=== PATIENT | male | born 1950 | race Caucasian/White ===

== ENCOUNTER → 2017-09-02 | Outpatient (CLI) | payer MEDICARE ==
[~2017-09-02] VITALS: Ht 170.2 cm; Wt 76.9 kg
[~2017-09-02] MED LIST: ASPI-437 PO; CHLORHEXIDINE GLUCONATE 2 % 1 PACK (2 CLOTHS) TOPICAL PRN; DILT30TA PO; ERYTOIN10 LEFT EYE; EZET10 PO; FURO40TA PO; GABA300C5 PO; HYDR12.57 PO; INSULIN HUMAN REGULAR 1,000 UNITS/10 ML VIAL SQ PRN; KLOR20TA3 PO; LACTATED RINGER'S 1000 ML IV PRN; LOSA100T PO; METF1000 PO; METO100T PO; METOPROLOL TARTRATE 25 MG TAB PO PRN; POVIDONE IODINE 5% (ANTISEPSIS KIT) 4 APPLICATIONS EACH NARE PRN; PROPOFOL 200 MG/20 ML AMP IV ONE; ROSU40 PO; SODIUM CHLORID 0.9% 500 ML IV PRN; SYSTSOL EACH EYE; VANCOMYCIN 500 MG/NS 100 ML IV SCH; WARF-23 PO; [UNRECOGNIZED DRUG - CODE] TOPICAL
[2017-09-02 07:26] LABS: INTERNATIONAL NORMALIZED RATIO 1.3 RATIO; PROTHROMBIN TIME - PATIENT 12.9 SEC (9.8-11.6)
--- NOTE | 2017-09-02 08:00 | GIPROC ---
[facility] [address] [facility]. [facility], [address] COLONOSCOPY PROCEDURE REPORT EXAM DATE: 09/02/2017 PATIENT NAME: Johnny Freitas MR #: [id number] BIRTHDATE: 1950 ENDOSCOPIST: Leonor Tinajero MD ORDER #: [id number] BINDING CEMENTER FRENCH CORD: Alexy La and Jennifer Benoit STATUS: outpatient INDICATIONS: The patient is a 67 yr old male here for a colonoscopy due to screening, personal history of polyps. PROCEDURE PERFORMED: Total Colonoscopy MEDICATIONS: See Anesthesia Record ESTIMATED BLOOD LOSS: None CONSENT: The patient understands the risks and benefits of the procedure and understands that these risks include, but are not limited to: sedation, allergic reaction, infection, perforation and/or bleeding. Alternative means of evaluation and treatment include, among others: physical exam, x-rays, and/or surgical intervention. The patient elects to proceed with this endoscopic procedure. DESCRIPTION OF PROCEDURE: checked for proper function. Hand hygiene and appropriate measures for infection prevention was taken. After the risks, benefits and alternatives of the procedure were thoroughly explained, Informed consent was verified, confirmed and timeout was successfully executed by the treatment team. A digital exam was performed. The endoscope was introduced through the anus and advanced to the cecum, which was identified by the appendiceal orifice, tri-radiate valve, and ileocecal valve. The prep quality was excellent. The instrument was then slowly withdrawn as the colon was fully examined. With the exception of mild sigmoid diverticulosis, there were no mucosal abnormalities noted with the cecum, ascending colon, transverse colon, descending colon, sigmoid, or rectum. The scope was then completely withdrawn from the patient and the procedure terminated. ADVERSE EVENTS: There were no complications. WITHDRAWL TIME: DEGREE OF DIFFICULTY: IMPRESSIONS: Normal Colon RECOMMENDATIONS: Home today PATIENT CONDITION: Stable DISPOSITION: Home RECALL: 5 years Leonor Tinajero MD eSigned: Leonor Tinajero MD 09/02/2017 8:00 AM cc: Dr. Rick, Dr. March PATIENT NAME: Johnny Freitas MR#: [id number]
[2017-09-02 09:13] VITALS: BP 148/87; PULSE 79; RESP 16; TEMP 97.8; O2SAT 99
--- NOTE | 2017-09-02 10:06 | EKG ---
Date Performed: 09/02/2017 Time Performed: 06:50:14 PTAGE: 67 years EKG: ATRIAL FIBRILLATION NONSPECIFIC ST & T-WAVE ABNORMALITY ABNORMAL RHYTHM ECG PREVIOUS TRACING : 03/07/2015 07.11 Compared to the previous tracing rate slower DOCTOR: Benji Fischer Interpretating Date/Time 09/02/2017 10:05:03
== END ==
LOC: HSDC 06:05
PROVIDERS: ATTEND Colon & Rectal Surgery
DX: Z12.11 Encounter for screening for malignant neoplasm of colon (principal); Z86.010 Personal history of colon polyps; K57.30 Diverticulosis of large intestine without perforation or abscess without bleeding; I48.91 Unspecified atrial fibrillation; I10 Essential (primary) hypertension
CPT/HCPCS: 00810; 45378; 85610; 93005; J3370; J7120

== ENCOUNTER 2017-10-28 13:41 | Emergency (ER) | payer MEDICARE ==
[~2017-10-28] VITALS: Ht 170.2 cm; Wt 74.0 kg
[~2017-10-28 13:41] MED LIST changes: -CHLORHEXIDINE GLUCONATE 2 % 1 PACK (2 CLOTHS) TOPICAL PRN; -ERYTOIN10 LEFT EYE; -FURO40TA PO; -INSULIN HUMAN REGULAR 1,000 UNITS/10 ML VIAL SQ PRN; -KLOR20TA3 PO; -LACTATED RINGER'S 1000 ML IV PRN; -METOPROLOL TARTRATE 25 MG TAB PO PRN; -POVIDONE IODINE 5% (ANTISEPSIS KIT) 4 APPLICATIONS EACH NARE PRN; -PROPOFOL 200 MG/20 ML AMP IV ONE; -SODIUM CHLORID 0.9% 500 ML IV PRN; -SYSTSOL EACH EYE; -VANCOMYCIN 500 MG/NS 100 ML IV SCH
[2017-10-28] MEDS ORDERED: IOHEXOL 350 MG/ML 10 ML VIAL (for RAD DIAG) IVCONTRAST ONE (13:42)
[2017-10-28 13:43] VITALS: BP 139/94; PULSE 80; RESP 16; TEMP 98.4; O2SAT 99
[2017-10-28 15:03] LABS: AUTOMATED NEUTROPHIL # 4.1 TH/MM3 (1.8-7.7); BASOPHIL % 0.7 % (0.0-2.0); EOSINOPHIL # 0.4 TH/MM3 (0-0.4); EOSINOPHIL % 6.3 % (0.0-4.0); HEMATOCRIT 36.3 % (39.0-51.0); HEMOGLOBIN 12.5 GM/DL (13.0-17.0); LYMPH % 24.6 % (9.0-44.0); LYMPHOCYTE # 1.7 TH/MM3 (1.0-4.8); MEAN CELL VOLUME 87.7 FL (80.0-100.0); MEAN CORPUSCULAR HEMOGLOBIN 30.2 PG (27.0-34.0); MEAN CORPUSCULAR HGB CONC 34.4 % (32.0-36.0); MONO % 9.6 % (0.0-8.0); MONOCYTE # 0.7 TH/MM3 (0-0.9); NEUT % 58.8 % (16.0-70.0); PLATELET COUNT 249 TH/MM3 (150-450); RED BLOOD COUNT 4.14 MIL/MM3 (4.50-5.90)
[2017-10-28 15:24] LABS: ALT (GPT) 22 U/L (12-78); AST (GOT) 23 U/L (15-37); BICARBONATE 28.2 MEQ/L (21.0-32.0); BLOOD UREA NITROGEN 20 MG/DL (7-18); CALCIUM 8.3 MG/DL (8.5-10.1); CHLORIDE 104 MEQ/L (98-107); CREATININE 0.94 MG/DL (0.60-1.30); GLOMERULAR FILTRATION RATE 80 ML/MIN (>89); GLUCOSE,RANDOM 85 MG/DL (74-106); LIPASE 496 U/L (73-393); SODIUM (NA) 137 MEQ/L (136-145)
[2017-10-28 15:26] LABS: ALKALINE PHOSPHATASE 78 U/L (45-117); TOTAL BILIRUBIN ADULT 0.5 MG/DL (0.2-1.0); TOTAL PROTEIN 7.8 GM/DL (6.4-8.2)
[2017-10-28 15:34] LABS: INTERNATIONAL NORMALIZED RATIO 1.8 RATIO; PROTHROMBIN TIME - PATIENT 18.4 SEC (9.8-11.6)
--- NOTE | 2017-10-28 16:11 | PD ---
HPI Chief Complaint: GI Complaint Time Seen by Provider: 15:45 Travel History International Travel<30 days: No Contact w/Intl Traveler<30days: No Traveled to known affect area: No History of Present Illness HPI 67-year-old male complains of bloody stool. Patient states that he started having diarrhea about 4 weeks ago. Patient states that the diarrhea lasted for 3 weeks. Patient was seen by personal physician and given prescription for Flagyl. Patient states that the diarrhea resolved and came back again since last week. Patient states that he has intermittent black tarry stool yesterday and bloody stool today. Patient denies abdominal pain. Patient denies any headache. Patient denies any chest pain or shortness of breath. Patient denies any fever chills. Patient denies any back pain. Patient has history of atrial fibrillation and bovine aortic valve replacement. Patient is on Coumadin. Patient ALSO has history of diabetes, hypertension, CAD, CHF, TIA. Patient check his INR this morning and it was 2.0. PFSH Past Medical History Arthritis: No Asthma: Yes Atrial Fibrillation: Yes (STATES SINCE ) Autoimmune Disease: No Anxiety: No Depression: No Heart Rhythm Problems: Yes (AFIB) Cardiac Catheterization: Yes Cardiovascular Problems: Yes (CARDIAC CATH ,ANGIOGRAM, cardiac ablation, MV REPAIR, AVR) High Cholesterol: Yes (ON MEDICATION) Chest Pain: Yes Congestive Heart Failure: No COPD: Yes Coronary Artery Disease: Yes Diabetes: Yes Patient Takes Glucophage: No Endocrine: No GERD: No Genitourinary: No Hepatitis: No Hiatal Hernia: No Hypertension: Yes (ON MEDICATION) Immune Disorder: No Kidney Stones: Yes Musculoskeletal: Yes (LARGE FATTY TUMOR REMOVED RIGHT LEG [id number]) Neurologic: No Psychiatric: No Reproductive: No Respiratory: Yes (PARTIAL RIGHT lobectomy 1999) Renal Failure: Yes Sleep Apnea: No Thyroid Disease: No Ulcer: Yes Past Surgical History Abdominal Surgery: No AICD: No Body Medical Devices: aortic valve replacement, SOLO FROM LUNG SX, STERNAL WIRES Cardiac Surgery: Yes (2 CARDIAC CATHS 1998 AND 2000) Coronary Artery Bypass Graft: Yes Ear Surgery: No Endocrine Surgery: No Eye Surgery: No Genitourinary Surgery: Yes (TURP X 2) Gynecologic Surgery: No Joint Replacement: No Oral Surgery: No Pacemaker: No Thoracic Surgery: Yes (LOBECTOMY ON RIGHT LUNG IN 1999) Valve Replacement: Yes Other Surgery: Yes Social History Alcohol Use: No Tobacco Use: No (FORMER 1984) Substance Use: No Allergies-Medications (Allergen,Severity, Reaction): Coded Allergies: sulfamethoxazole (Unverified Allergy, Severe, Headache, 10/28/17) trimethoprim (Unverified Allergy, Severe, Headache, 10/28/17) Sulfa (Sulfonamide Antibiotics) (Unverified Allergy, Intermediate, 10/28/17 ) Reported Meds & Prescriptions Reported Meds & Active Scripts Active Reported Gabapentin 300 Mg Cap 900 Mg PO BID Zetia (Ezetimibe) 10 Mg Tab 10 Mg PO DAILY Crestor (Rosuvastatin Calcium) 40 Mg Tab 40 Mg PO DAILY Diltiazem (Diltiazem HCl) 30 Mg Tab 30 Mg PO BID Metformin (Metformin HCl) 1,000 Mg Tab 1,000 Mg PO BIDPC With meals Hydrochlorothiazide 12.5 Mg Cap 12.5 Mg PO DAILY Metoprolol Tartrate 100 Mg Tab 2 Tab PO BID Losartan (Losartan Potassium) 100 Mg Tab 100 Mg PO DAILY Adult Low Dose Aspirin EC (Aspirin) 81 Mg Tablet.dr 1 Tab PO DAILY Warfarin 5 Mg Tab 5 Mg PO DAILY Review of Systems General / Constitutional: No: Fever Eyes: No: Visual changes HENT: No: Headaches Cardiovascular: No: Chest Pain or Discomfort Respiratory: No: Shortness of Breath Gastrointestinal: Positive: Hematochezia, No: Abdominal Pain Genitourinary: No: Dysuria Musculoskeletal: No: Pain Skin: No Rash Neurologic: No: Weakness Psychiatric: No: Depression Endocrine: No: Polydipsia Hematologic/Lymphatic: No: Easy Bruising Physical Exam Narrative GENERAL: Well-nourished, well-developed patient. SKIN: Focused skin assessment warm/dry. HEAD: Normocephalic. EYES: No scleral icterus. No injection or drainage. NECK: Supple, trachea midline. No JVD or lymphadenopathy. CARDIOVASCULAR: Regular rate and rhythm without murmurs, gallops, or rubs. RESPIRATORY: Breath sounds equal bilaterally. No accessory muscle use. GASTROINTESTINAL: Abdomen soft, non-tender, nondistended. Rectal exam Hemoccult trace positive. MUSCULOSKELETAL: No cyanosis, or edema. BACK: Nontender without obvious deformity. No CVA tenderness. Neurologic exam normal. Data Data Last Documented VS Vital Signs Date Time Temp Pulse Resp B/P (MAP) Pulse Ox O2 Delivery O2 Flow Rate FiO2 10/28/17 13:43 98.4 80 16 139/94 (109) 99 Orders Orders Complete Blood Count With Diff (10/28/17 13:45) Comprehensive Metabolic Panel (10/28/17 13:45) Lipase (10/28/17 13:45) Prothrombin Time / Inr (Pt) (10/28/17 13:45) Act Partial Throm Time (Ptt) (10/28/17 13:45) Ct Abd/Pel W Iv Contrast(Rout) (10/28/17 15:59) Iohexol 350 Inj (Omnipaque 350 Inj) (10/28/17 13:42) Ed Discharge Order (10/28/17 18:58) Labs Laboratory Tests Test 10/28/17 13:55 White Blood Count 7.0 TH/MM3 Red Blood Count 4.14 MIL/MM3 Hemoglobin 12.5 GM/DL Hematocrit 36.3 % Mean Corpuscular Volume 87.7 FL Mean Corpuscular Hemoglobin 30.2 PG Mean Corpuscular Hemoglobin Concent 34.4 % Red Cell Distribution Width 14.0 % Platelet Count 249 TH/MM3 Mean Platelet Volume 8.0 FL Neutrophils (%) (Auto) 58.8 % Lymphocytes (%) (Auto) 24.6 % Monocytes (%) (Auto) 9.6 % Eosinophils (%) (Auto) 6.3 % Basophils (%) (Auto) 0.7 % Neutrophils # (Auto) 4.1 TH/MM3 Lymphocytes # (Auto) 1.7 TH/MM3 Monocytes # (Auto) 0.7 TH/MM3 Eosinophils # (Auto) 0.4 TH/MM3 Basophils # (Auto) 0.0 TH/MM3 CBC Comment DIFF FINAL Differential Comment Prothrombin Time 18.4 SEC Prothromb Time International Ratio 1.8 RATIO Activated Partial Thromboplast Time 33.8 SEC Blood Urea Nitrogen 20 MG/DL Creatinine 0.94 MG/DL Random Glucose 85 MG/DL Total Protein 7.8 GM/DL Albumin 4.0 GM/DL Calcium Level 8.3 MG/DL Alkaline Phosphatase 78 U/L Aspartate Amino Transf (AST/SGOT) 23 U/L Alanine Aminotransferase (ALT/SGPT) 22 U/L Total Bilirubin 0.5 MG/DL Sodium Level 137 MEQ/L Potassium Level 4.3 MEQ/L Chloride Level 104 MEQ/L Carbon Dioxide Level 28.2 MEQ/L Anion Gap 5 MEQ/L Estimat Glomerular Filtration Rate 80 ML/MIN Lipase 496 U/L [facility] Medical Decision Making Medical Screen Exam Complete: Yes Emergency Medical Condition: Yes Interpretation(s) [address] scan abdomen pelvis shows gastroenteritis. CBC WBC 7.0. Hemoglobin 12.5 hematocrit 36.3. Normal differential. BUN 20. GFR 80. Lipase 496. INR 1.8. Differential Diagnosis Differential diagnosis including upper GI bleed, lower GI bleed, colitis, hemorrhoidal bleed, AV malformation, hypercoagulation. Narrative Course 67-year-old male with blood per stool. History of atrial fibrillation and bovine aortic valve replacement on Coumadin. Recently was treated for C. difficile colitis with Flagyl. I spoke with Dr. Leonor Tinajero. Advised patient to follow up with her in the office. Diagnosis Primary Impression: Gastroenteritis Additional Impression: GI bleed Qualified Codes: K92.2 - Gastrointestinal hemorrhage, unspecified Patient Instructions: General Instructions Additional Instructions: Follow-up with personal physician. Return if increasing rectal bleeding or abdominal pain or fever. Med/Other Pt SpecificInfo: No Change to Meds Disposition: 01 DISCHARGE HOME Condition: Stable Jose Carlos French MD Oct 28, 2017 16:11
--- NOTE | 2017-10-28 17:46 | RADRPT ---
EXAM DATE/TIME: 10/28/2017 17:33 [facility] COMPARISON: CT ABDOMEN & PELVIS W/O CONTRAST, March 06, 2015, 13:07. INDICATIONS : Patient complains of bloody stools. IV CONTRAST: 94 cc Omnipaque 350 (iohexol) IV ORAL CONTRAST: No oral contrast ingested. RADIATION DOSE: 8.08 CTDIvol (mGy) MEDICAL HISTORY : Cardiovascular disease. Hypertension. Chronic obstructive pulmonary disease.renal failure SURGICAL HISTORY : Lobectomy. ENCOUNTER: Initial ACUITY: 1 day PAIN SCALE: 0/10 LOCATION: abdomen TECHNIQUE: Volumetric scanning of the abdomen and pelvis was performed. Using automated exposure control and ad justment of the mA and/or kV according to patient size, radiation dose was kept as low as reasonably achievable to obtain optimal diagnostic quality images. DICOM format image data is available electro nically for review and comparison. FINDINGS: LOWER LUNGS: The visualized lower lungs are clear except for mild scarring and emphysema. The patient is status po st median sternotomy. There is a mitral valve prosthesis in place. LIVER: Homogeneous density without lesion. There is no dilation of the biliary tree. No calcified gallston es. SPLEEN: Normal size without lesion. PANCREAS: Within normal limits. KIDNEYS: Normal in size and shape. There is no solid mass, stone or hydronephrosis. A simple cyst is again no arash in the left kidney. ADRENAL GLANDS: Within normal limits. VASCULAR: There is no aortic aneurysm. BOWEL/MESENTERY: No oral contrast was given limiting the sensitivity. There are multiple loops of nondilated air-conta ining small bowel several small air-fluid levels. Colon appears unremarkable. There is no free intrap eritoneal air or fluid. ABDOMINAL WALL: Within normal limits. RETROPERITONEUM: There is no lymphadenopathy. BLADDER: No wall thickening or mass. REPRODUCTIVE: Within normal limits. INGUINAL: There is no lymphadenopathy or hernia. MUSCULOSKELETAL: Within normal limits for patient age. CONCLUSION: 1. Mildly nonspecific, nonobstructive bowel gas pattern. This could represent a mild ileus and/or gas troenteritis. No oral contrast was given limiting the sensitivity of the exam. 2. Simple left renal cyst again noted. Marky Royal MD on October 28, 2017 at 17:40 Board Certified Radiologist. This report was verified electronically.
== END 2017-10-28 19:17 | disposition home or self-care (01) ==
LOC: NEPC 13:41
DX: K52.9 Noninfective gastroenteritis and colitis, unspecified (principal); I48.91 Unspecified atrial fibrillation; E78.00 Pure hypercholesterolemia, unspecified; I25.10 Atherosclerotic heart disease of native coronary artery without angina pectoris; I12.9 Hypertensive chronic kidney disease with stage 1 through stage 4 chronic kidney disease, or unspecified chronic kidney disease; E11.22 Type 2 diabetes mellitus with diabetic chronic kidney disease; N18.9 Chronic kidney disease, unspecified; Z79.01 Long term (current) use of anticoagulants; Z79.84 Long term (current) use of oral hypoglycemic drugs; Z95.3 Presence of xenogenic heart valve; Z87.891 Personal history of nicotine dependence
CPT/HCPCS: 74177; 80053; 83690; 85025; 85610; 85730; 99285; Q9967

== ENCOUNTER 2017-12-30 09:25 | Emergency (ER) | payer MEDICARE ==
[~2017-12-30] VITALS: Ht 170.2 cm; Wt 75.0 kg
[~2017-12-30 09:25] MED LIST changes: -[UNRECOGNIZED DRUG - CODE] TOPICAL
[2017-12-30 09:30] VITALS: RESP 20; TEMP 98.7
[2017-12-30 09:34] VITALS: BP 165/99; PULSE 109; RESP 18; TEMP 98.7; O2SAT 98
[2017-12-30] MEDS ORDERED: POTA-163 PO (09:39)
[2017-12-30] MEDS ORDERED: NITR0.4S SL (09:39)
--- NOTE | 2017-12-30 09:41 | PD ---
HPI Chief Complaint: Pain: Acute or Chronic Time Seen by Provider: 09:32 Travel History International Travel<30 days: No Contact w/Intl Traveler<30days: No Traveled to known affect area: No History of Present Illness HPI Patient complains of right hip pain. Duration is 3 days. Severity is moderate. He has not had any injury or fall recently. He takes Coumadin for history of A. fib. He has been on this for 6 years. He has spontaneous bruising of the left arm and chest wall. He denies injury in these areas. He has been ambulatory and has pain with weightbearing. Symptoms have no alleviating factors. Symptoms exacerbated by Coumadin use. Patient had recent endoscopy and colonoscopy for GI bleeding. His last bleeding was 1 month ago. He has not had a recent INR check PFS Past Medical History Arthritis: No Asthma: Yes Atrial Fibrillation: Yes (STATES SINCE ) Autoimmune Disease: No Anxiety: No Depression: No Heart Rhythm Problems: Yes (AFIB) Cardiac Catheterization: Yes Cardiovascular Problems: Yes (CARDIAC CATH ,ANGIOGRAM, cardiac ablation, MV REPAIR, AVR) High Cholesterol: Yes (ON MEDICATION) Chest Pain: Yes Congestive Heart Failure: No COPD: Yes Coronary Artery Disease: Yes Diabetes: Yes Patient Takes Glucophage: Yes (METFORMIN) Endocrine: No GERD: No Genitourinary: No Hepatitis: No Hiatal Hernia: No Hypertension: Yes Immune Disorder: No Kidney Stones: Yes Musculoskeletal: Yes (LARGE FATTY TUMOR REMOVED RIGHT LEG [id number]) Neurologic: No Psychiatric: No Reproductive: No Respiratory: Yes (PARTIAL RIGHT lobectomy 1999) Renal Failure: Yes Sleep Apnea: No Thyroid Disease: No Ulcer: Yes Past Surgical History Abdominal Surgery: No AICD: No Body Medical Devices: aortic valve replacement, SOLO FROM LUNG SX, STERNAL WIRES Cardiac Surgery: Yes (2 CARDIAC CATHS 1998 AND 2000) Coronary Artery Bypass Graft: Yes Ear Surgery: No Endocrine Surgery: No Eye Surgery: No Genitourinary Surgery: Yes (TURP X 2) Gynecologic Surgery: No Joint Replacement: No Oral Surgery: No Pacemaker: No Thoracic Surgery: Yes (LOBECTOMY ON RIGHT LUNG IN 1999) Valve Replacement: Yes Other Surgery: Yes Social History Alcohol Use: No Tobacco Use: No (FORMER 1984) Substance Use: No Allergies-Medications (Allergen,Severity, Reaction): Coded Allergies: sulfamethoxazole (Unverified Allergy, Severe, Headache, 12/30/17) trimethoprim (Unverified Allergy, Severe, Headache, 12/30/17) Sulfa (Sulfonamide Antibiotics) (Unverified Allergy, Intermediate, 12/30/17) Reported Meds & Prescriptions Reported Meds & Active Scripts Active Reported Potassium Chloride ER (Potassium Chloride) 20 Meq Tab 20 Meq PO DAILY Nitrostat SL (Nitroglycerin) 0.4 Mg Subl 0.4 Mg SL DIRECTED PRN 1 tablet under the tongue as needed for chest pain. Repeat every 5 minutes for a total of 3 DOSES or call 911 if NO relief. Gabapentin 300 Mg Cap 900 Mg PO BID Zetia (Ezetimibe) 10 Mg Tab 10 Mg PO DAILY Crestor (Rosuvastatin Calcium) 40 Mg Tab 40 Mg PO DAILY Diltiazem (Diltiazem HCl) 30 Mg Tab 60 Mg PO BID Metformin (Metformin HCl) 1,000 Mg Tab 1,000 Mg PO BIDPC With meals Hydrochlorothiazide 12.5 Mg Cap 12.5 Mg PO DAILY Metoprolol Tartrate 100 Mg Tab 2 Tab PO BID Losartan (Losartan Potassium) 100 Mg Tab 100 Mg PO DAILY Adult Low Dose Aspirin EC (Aspirin) 81 Mg Tablet.dr 1 Tab PO DAILY Warfarin 5 Mg Tab 5 Mg PO DAILY Review of Systems General / Constitutional: No: Fever Eyes: No: Visual changes HENT: No: Headaches Cardiovascular: Positive: Irregular Rhythm, No: Chest Pain or Discomfort Respiratory: No: Shortness of Breath Gastrointestinal: No: Abdominal Pain Genitourinary: No: Dysuria Musculoskeletal: Positive: Pain Skin: Positive Change in Pigmentation, No Rash Neurologic: No: Weakness Psychiatric: No: Depression Endocrine: No: Polydipsia Hematologic/Lymphatic: No: Easy Bruising Physical Exam Narrative GENERAL: Well-nourished, well-developed patient with right hip pain . SKIN: Focused skin assessment reveals no rash and nodules. Skin is Warm and dry. HEAD: Atraumatic. Normocephalic. EYES: Pupils equal and round. No scleral icterus. No injection or drainage. ENT: No nasal bleeding or discharge. Mucous membranes pink and moist. NECK: Trachea midline. No JVD. CARDIOVASCULAR: Irregularly irregular rhythm. 2 to 3 out of 6 systolic murmur appreciated. RESPIRATORY: No accessory muscle use. Clear to auscultation. Breath sounds equal bilaterally. GASTROINTESTINAL: Abdomen soft, non-tender, nondistended. Hepatic and splenic margins not palpable. MUSCULOSKELETAL: No obvious deformities. No clubbing. No cyanosis. No edema. Has areas of ecchymosis on the left chest wall and left upper arm. No bony tenderness in these regions. Decent range of motion right hip. He has pain in the right quadricep which is tender. No ecchymosis in that region. NEUROLOGICAL: Awake and alert. No obvious cranial nerve deficits. Motor grossly within normal limits. Normal speech. PSYCHIATRIC: Appropriate mood and affect; insight and judgment normal. Data Data Last Documented VS Vital Signs Date Time Temp Pulse Resp B/P (MAP) Pulse Ox O2 Delivery O2 Flow Rate FiO2 12/30/17 09:34 98.7 109 18 165/99 (121) 98 Room Air Orders Orders Pelvis, Ap Only (Routine) (12/30/17 ) Femur (Ap & Lat/2vws) (12/30/17 ) Iv Access Insert/Monitor (12/30/17 09:45) Complete Blood Count With Diff (12/30/17 09:45) Basic Metabolic Panel (Bmp) (12/30/17 09:45) Prothrombin Time / Inr (Pt) (12/30/17 09:45) Labs Laboratory Tests Test 12/30/17 09:45 White Blood Count 9.0 TH/MM3 Red Blood Count 3.47 MIL/MM3 Hemoglobin 10.3 GM/DL Hematocrit 30.3 % Mean Corpuscular Volume 87.1 FL Mean Corpuscular Hemoglobin 29.8 PG Mean Corpuscular Hemoglobin Concent 34.2 % Red Cell Distribution Width 13.8 % Platelet Count 255 TH/MM3 Mean Platelet Volume 8.2 FL Neutrophils (%) (Auto) 75.8 % Lymphocytes (%) (Auto) 12.3 % Monocytes (%) (Auto) 10.6 % Eosinophils (%) (Auto) 1.1 % Basophils (%) (Auto) 0.2 % Neutrophils # (Auto) 6.8 TH/MM3 Lymphocytes # (Auto) 1.1 TH/MM3 Monocytes # (Auto) 1.0 TH/MM3 Eosinophils # (Auto) 0.1 TH/MM3 Basophils # (Auto) 0.0 TH/MM3 CBC Comment DIFF FINAL Differential Comment Prothrombin Time 48.4 SEC Prothromb Time International Ratio 4.8 RATIO Blood Urea Nitrogen 16 MG/DL Creatinine 0.98 MG/DL Random Glucose 139 MG/DL Calcium Level 8.1 MG/DL Sodium Level 138 MEQ/L Potassium Level 3.8 MEQ/L Chloride Level 104 MEQ/L Carbon Dioxide Level 27.1 MEQ/L Anion Gap 7 MEQ/L Estimat Glomerular Filtration Rate 76 ML/MIN MDM Medical Decision Making Medical Screen Exam Complete: Yes Emergency Medical Condition: Yes Medical Record Reviewed: Yes Differential Diagnosis Supratherapeutic INR, arthritis, A. fib with RVR Narrative Course I have reviewed the patient's electronic medical record. IV placed and labs sent Reviewed his pelvis x-ray which shows no fracture I reviewed his right femur x-rays which shows no fracture or dislocation Labs are reviewed. His INR is elevated at 4.8 We had a lengthy discussion regarding this. We discussed options to reverse his Coumadin but given that he has artificial valve and is supposed to be between 2.5 and 3.5 we have decided to let this drift down naturally. I do not see any obvious hematoma or bruising in the right quadricep where he has his pain. He will not take his Coumadin today or tomorrow. He should get a repeat check in a couple of days He is advised to discuss this with his personal physician Gave him an injection of morphine for symptom relief Incidental note is made of his A. fib with RVR. Heart rate is running between 100-1 25 Going to give him 10 mg IV Cardizem He has elevated blood pressure of 165 systolic prior to the dose He is advised to check and record his blood pressure daily I do not think on a clinical basis he has significant hemarthrosis Seems to be quadricep muscular pain that is bothering him He does have a walker at home I recommended he use I will write him a few days of pain medication Diagnosis Primary Impression: Acute right hip pain Additional Impressions: Supratherapeutic INR Spontaneous ecchymosis Additional Instructions: The patient was advised to follow up with their physician and return if they worsen. The patient was warned about potential sedation for the medications they will receive on prescription. Use walker Hold Coumadin today and tomorrow Med/Other Pt SpecificInfo: Prescription(s) given Disposition: 01 DISCHARGE HOME Condition: Stable Ryley Torres MD Dec 30, 2017 09:41
[2017-12-30 10:10] LABS: AUTOMATED NEUTROPHIL # 6.8 TH/MM3 (1.8-7.7); BASOPHIL % 0.2 % (0.0-2.0); EOSINOPHIL # 0.1 TH/MM3 (0-0.4); EOSINOPHIL % 1.1 % (0.0-4.0); HEMATOCRIT 30.3 % (39.0-51.0); HEMOGLOBIN 10.3 GM/DL (13.0-17.0); LYMPH % 12.3 % (9.0-44.0); LYMPHOCYTE # 1.1 TH/MM3 (1.0-4.8); MEAN CELL VOLUME 87.1 FL (80.0-100.0); MEAN CORPUSCULAR HEMOGLOBIN 29.8 PG (27.0-34.0); MEAN CORPUSCULAR HGB CONC 34.2 % (32.0-36.0); MEAN PLATELET VOLUME 8.2 FL (7.0-11.0); MONO % 10.6 % (0.0-8.0); NEUT % 75.8 % (16.0-70.0); PLATELET COUNT 255 TH/MM3 (150-450); RED BLOOD COUNT 3.47 MIL/MM3 (4.50-5.90); RED CELL DISTRIBUTION WIDTH 13.8 % (11.6-17.2)
[2017-12-30 10:17] LABS: INTERNATIONAL NORMALIZED RATIO 4.8 RATIO; PROTHROMBIN TIME - PATIENT 48.4 SEC (9.8-11.6)
[2017-12-30 10:32] LABS: BICARBONATE 27.1 MEQ/L (21.0-32.0); CALCIUM 8.1 MG/DL (8.5-10.1); CREATININE 0.98 MG/DL (0.60-1.30)
--- NOTE | 2017-12-30 10:33 | RADRPT ---
EXAM DATE/TIME: 12/30/2017 10:06 [facility] COMPARISON: No previous studies available for comparison. INDICATIONS : No known injury. Pain in right hip starting yesterday. MEDICAL HISTORY : Cardiovascular disease. Hypertension. Chronic obstructive pulmonary disease.renal failure SURGICAL HISTORY : Lobectomy. ENCOUNTER: Initial ACUITY: 1 day PAIN SCORE: 7/10 LOCATION: Right Hip FINDINGS: Mild patient rotation towards the left previous left/right asymmetries. A single frontal view of the pelvis demonstrates no evidence of fracture. The bony pelvic ring is intact. Bony mineralization i s normal. Symmetric mild degenerative changes in both hips. Vascular calcification in the proximal thighs and iliac region.. CONCLUSION: Bony pelvic ring is grossly intact. Goyo Cifuentes MD on December 30, 2017 at 10:28 Board Certified Radiologist. This report was verified electronically.
--- NOTE | 2017-12-30 10:34 | RADRPT ---
EXAM DATE/TIME: 12/30/2017 10:07 [facility] COMPARISON: No previous studies available for comparison. INDICATIONS : No known injury. Pain in right hip starting yesterday. MEDICAL HISTORY : Cardiovascular disease. Hypertension. Chronic obstructive pulmonary disease.renal failure SURGICAL HISTORY : Lobectomy. ENCOUNTER: Initial ACUITY: 1 day PAIN SCORE: 7/10 LOCATION: Right Hip FINDINGS: Two view examination of the right femur demonstrates no evidence of fracture or dislocation. Bony mi neralization is normal. The primary and secondary trabecular pattern of the femoral neck is intact. Mild narrowing of the superior hip joint without significant osteophyte formation. Prominent vascu lar calcification throughout the spine.. CONCLUSION: Mild degenerative changes in the hip. Otherwise negative exam. Goyo Cifuentes MD on December 30, 2017 at 10:30 Board Certified Radiologist. This report was verified electronically.
[2017-12-30] MEDS ORDERED: MORPHINE SULFATE 4 MG/ML INJ IV PUSH ONE (11:00)
[2017-12-30] MEDS ORDERED: ONDANSETRON HCL 4 MG/2 ML VIAL IV ONE (11:00)
[2017-12-30] MEDS ORDERED: DILTIAZEM HCL 25 MG/5 ML VIAL IV ONE (11:00)
[2017-12-30] MEDS ORDERED: DILTIAZEM HCL 50 MG/10 ML VIAL ONE (11:21)
[2017-12-30] MEDS ORDERED: PERC5TAB12 PO (11:26)
[2017-12-30 11:28] VITALS: BP 140/89; PULSE 94; RESP 22; O2SAT 95
[2017-12-30 12:25] VITALS: BP 162/83
== END 2017-12-30 12:29 | disposition home or self-care (01) ==
LOC: NEPC 09:25
DX: M25.551 Pain in right hip (principal); R79.1 Abnormal coagulation profile; R23.3 Spontaneous ecchymoses; E78.00 Pure hypercholesterolemia, unspecified; I48.91 Unspecified atrial fibrillation; I25.10 Atherosclerotic heart disease of native coronary artery without angina pectoris; I12.9 Hypertensive chronic kidney disease with stage 1 through stage 4 chronic kidney disease, or unspecified chronic kidney disease; E11.22 Type 2 diabetes mellitus with diabetic chronic kidney disease; N18.9 Chronic kidney disease, unspecified; Z87.891 Personal history of nicotine dependence; Z79.01 Long term (current) use of anticoagulants; Z79.84 Long term (current) use of oral hypoglycemic drugs
CPT/HCPCS: 72170; 73552; 80048; 85025; 85610; 96374; 96375; 99284; J2270; J2405

== ENCOUNTER 2018-01-02 11:38 | Emergency (ER) | payer MEDICARE ==
[~2018-01-02] VITALS: Ht 170.2 cm; Wt 72.5 kg
[~2018-01-02 11:38] MED LIST changes: +NITR0.4S SL; +PERC5TAB12 PO; +POTA-163 PO
[2018-01-02 11:51] VITALS: BP 144/67; PULSE 61; RESP 18; TEMP 98.5; O2SAT 97
[2018-01-02] MEDS ORDERED: SODIUM CHLORIDE 0.9% FLUSH 10 ML FLUSH IV FLUSH PRN (15:15)
--- NOTE | 2018-01-02 15:16 | PD ---
HPI Chief Complaint: Hip Injury Time Seen by Provider: 14:34 Travel History International Travel<30 days: No Contact w/Intl Traveler<30days: No Traveled to known affect area: No History of Present Illness HPI This patient was seen here 3 days ago. I saw him and he had spontaneous pain in the right hip and right quadricep area with no injury. Etiology was puzzling. Plain films were negative. He returns today with pain that is now in his right lower quadrant primarily. He is not having pain in the right quadricep which was the main problem a few days ago. He admits the pain is migratory. He has no fever or vomiting. Symptoms are moderately severe. Pain seems worse when he is walking. No alleviating factors. Duration 5 days. He is holding his Coumadin as his INR was elevated. PFSH Past Medical History Hx Anticoagulant Therapy: Yes (coumadin) Arthritis: No Asthma: Yes Atrial Fibrillation: Yes (STATES SINCE ) Autoimmune Disease: No Anxiety: No Depression: No Heart Rhythm Problems: Yes (AFIB) Cardiac Catheterization: Yes Cardiovascular Problems: Yes High Cholesterol: Yes (ON MEDICATION) Chemotherapy: No Chest Pain: Yes Congestive Heart Failure: No COPD: Yes Cerebrovascular Accident: No Coronary Artery Disease: Yes Diabetes: Yes Patient Takes Glucophage: Yes Endocrine: No GERD: No Genitourinary: No Hepatitis: No Hiatal Hernia: No Hypertension: Yes Immune Disorder: No Kidney Stones: Yes Musculoskeletal: Yes (LARGE FATTY TUMOR REMOVED RIGHT LEG [id number]) Neurologic: No Psychiatric: No Reproductive: No Respiratory: No Renal Failure: Yes Sleep Apnea: No Thyroid Disease: No Ulcer: Yes Past Surgical History Abdominal Surgery: No AICD: No Body Medical Devices: aortic valve replacement, SOLO FROM LUNG SX, STERNAL WIRES Cardiac Surgery: Yes (2 CARDIAC CATHS 99 & 01, ARTIFICIAL VALVE (BOVINE AORTIC) , MITRALVALVEREPAI) Coronary Artery Bypass Graft: Yes Ear Surgery: No Endocrine Surgery: No Eye Surgery: No Genitourinary Surgery: Yes (TURP X 2) Gynecologic Surgery: No Joint Replacement: No Oral Surgery: No Pacemaker: No Thoracic Surgery: Yes (LOBECTOMY ON RIGHT LUNG IN 1999) Valve Replacement: Yes Other Surgery: Yes Social History Alcohol Use: No Tobacco Use: No (FORMER 1984) Substance Use: No Allergies-Medications (Allergen,Severity, Reaction): Coded Allergies: sulfamethoxazole (Unverified Allergy, Severe, Headache, 12/30/17) trimethoprim (Unverified Allergy, Severe, Headache, 12/30/17) Sulfa (Sulfonamide Antibiotics) (Unverified Allergy, Intermediate, 12/30/17) Reported Meds & Prescriptions Reported Meds & Active Scripts Active Percocet (Oxycodone-Acetaminophen) 5-325 mg Tab 1 Tab PO Q6H PRN Reported Potassium Chloride ER (Potassium Chloride) 20 Meq Tab 20 Meq PO DAILY Nitrostat SL (Nitroglycerin) 0.4 Mg Subl 0.4 Mg SL DIRECTED PRN 1 tablet under the tongue as needed for chest pain. Repeat every 5 minutes for a total of 3 DOSES or call 911 if NO relief. Gabapentin 300 Mg Cap 900 Mg PO BID Zetia (Ezetimibe) 10 Mg Tab 10 Mg PO DAILY Crestor (Rosuvastatin Calcium) 40 Mg Tab 40 Mg PO DAILY Diltiazem (Diltiazem HCl) 30 Mg Tab 60 Mg PO BID Metformin (Metformin HCl) 1,000 Mg Tab 1,000 Mg PO BIDPC With meals Hydrochlorothiazide 12.5 Mg Cap 12.5 Mg PO DAILY Metoprolol Tartrate 100 Mg Tab 2 Tab PO BID Losartan (Losartan Potassium) 100 Mg Tab 100 Mg PO DAILY Adult Low Dose Aspirin EC (Aspirin) 81 Mg Tablet.dr 1 Tab PO DAILY Warfarin 5 Mg Tab 5 Mg PO DAILY Review of Systems General / Constitutional: No: Fever Eyes: No: Visual changes HENT: No: Headaches Cardiovascular: No: Chest Pain or Discomfort Respiratory: No: Shortness of Breath Gastrointestinal: Positive: Abdominal Pain Genitourinary: No: Dysuria Musculoskeletal: Positive: Limited ROM, Pain Skin: No Rash Neurologic: No: Weakness Psychiatric: No: Depression Endocrine: No: Polydipsia Hematologic/Lymphatic: No: Easy Bruising Physical Exam Narrative GENERAL: Well-nourished, well-developed patient with right lower quadrant pain . SKIN: Focused skin assessment reveals no rash and nodules. Skin is Warm and dry. HEAD: Atraumatic. Normocephalic. EYES: Pupils equal and round. No scleral icterus. No injection or drainage. ENT: No nasal bleeding or discharge. Mucous membranes pink and moist. NECK: Trachea midline. No JVD. CARDIOVASCULAR: Regular rate and rhythm. No murmur appreciated. RESPIRATORY: No accessory muscle use. Clear to auscultation. Breath sounds equal bilaterally. GASTROINTESTINAL: Abdomen soft, right lower quadrant is tender without rebound or guarding. nondistended. Hepatic and splenic margins not palpable. No pulsatile groin mass. I do not see any erythema or warmth or tenderness in the perineum or groin or perianal areas. MUSCULOSKELETAL: No obvious deformities. No clubbing. No cyanosis. No edema. He no longer has muscular tenderness in the right thigh region which was significant just 3 days ago. NEUROLOGICAL: Awake and alert. No obvious cranial nerve deficits. Motor grossly within normal limits. Normal speech. PSYCHIATRIC: Appropriate mood and affect; insight and judgment normal. Data Data Last Documented VS Vital Signs Date Time Temp Pulse Resp B/P (MAP) Pulse Ox O2 Delivery O2 Flow Rate FiO2 01/02/18 11:51 98.5 61 18 144/67 (92) 97 Orders Orders Basic Metabolic Panel (Bmp) (01/02/18 15:07) Complete Blood Count With Diff (01/02/18 15:07) Prothrombin Time / Inr (Pt) (01/02/18 15:07) Ct Abd/Pel W Iv Contrast(Rout) (01/02/18 15:07) Iv Access Insert/Monitor (01/02/18 15:07) Ecg Monitoring (01/02/18 15:07) Oximetry (01/02/18 15:07) Sodium Chloride 0.9% Flush (Ns Flush) (01/02/18 15:15) Labs Laboratory Tests Test 01/02/18 15:30 White Blood Count 7.6 TH/MM3 Red Blood Count 2.96 MIL/MM3 Hemoglobin 8.9 GM/DL Hematocrit 26.2 % Mean Corpuscular Volume 88.3 FL Mean Corpuscular Hemoglobin 30.1 PG Mean Corpuscular Hemoglobin Concent 34.0 % Red Cell Distribution Width 13.6 % Platelet Count 275 TH/MM3 Mean Platelet Volume 7.5 FL Neutrophils (%) (Auto) 64.5 % Lymphocytes (%) (Auto) 19.4 % Monocytes (%) (Auto) 12.2 % Eosinophils (%) (Auto) 3.0 % Basophils (%) (Auto) 0.9 % Neutrophils # (Auto) 4.9 TH/MM3 Lymphocytes # (Auto) 1.5 TH/MM3 Monocytes # (Auto) 0.9 TH/MM3 Eosinophils # (Auto) 0.2 TH/MM3 Basophils # (Auto) 0.1 TH/MM3 CBC Comment DIFF FINAL Differential Comment Prothrombin Time 30.2 SEC Prothromb Time International Ratio 3.0 RATIO Blood Urea Nitrogen 14 MG/DL Creatinine 0.87 MG/DL Random Glucose 111 MG/DL Calcium Level 8.2 MG/DL Sodium Level 137 MEQ/L Potassium Level 3.8 MEQ/L Chloride Level 101 MEQ/L Carbon Dioxide Level 28.2 MEQ/L Anion Gap 8 MEQ/L Estimat Glomerular Filtration Rate 87 ML/MIN MDM Medical Decision Making Medical Screen Exam Complete: Yes Emergency Medical Condition: Yes Medical Record Reviewed: Yes Differential Diagnosis Colitis, appendicitis, groin strain, hematoma Narrative Course I have reviewed the patient's electronic medical record. I reviewed his labs and x-rays from 3 days ago Patient presents with pain that is migrated and now settled in his right lower quadrant. He was not having this 3 days ago. His pain is significant and I am going to order IV and labs and a CT of abdomen and pelvis I reviewed his labs. He has anemia but otherwise general blood counts and metabolic studies are normal He has had recent GI workup for bleeding as previously noted Denies any current bleeding INR is 3.0 which is exactly where he wants it to be with a goal of 2.5-3.[address] scan. He has not gone yet. Case will be checked out to the evening physician to assist with disposition Diagnosis Primary Impression: Abdominal pain Qualified Codes: R10.31 - Right lower quadrant pain Ryley Torres MD Jan 02, 2018 15:16
[2018-01-02 15:48] LABS: AUTOMATED NEUTROPHIL # 4.9 TH/MM3 (1.8-7.7); BASOPHIL # 0.1 TH/MM3 (0-0.2); BASOPHIL % 0.9 % (0.0-2.0); EOSINOPHIL # 0.2 TH/MM3 (0-0.4); HEMATOCRIT 26.2 % (39.0-51.0); HEMOGLOBIN 8.9 GM/DL (13.0-17.0); LYMPH % 19.4 % (9.0-44.0); LYMPHOCYTE # 1.5 TH/MM3 (1.0-4.8); MEAN CELL VOLUME 88.3 FL (80.0-100.0); MEAN CORPUSCULAR HEMOGLOBIN 30.1 PG (27.0-34.0); MEAN PLATELET VOLUME 7.5 FL (7.0-11.0); MONO % 12.2 % (0.0-8.0); MONOCYTE # 0.9 TH/MM3 (0-0.9); NEUT % 64.5 % (16.0-70.0); PLATELET COUNT 275 TH/MM3 (150-450); RED BLOOD COUNT 2.96 MIL/MM3 (4.50-5.90); RED CELL DISTRIBUTION WIDTH 13.6 % (11.6-17.2); WHITE BLOOD COUNT 7.6 TH/MM3 (4.0-11.0)
[2018-01-02 15:58] LABS: PROTHROMBIN TIME - PATIENT 30.2 SEC (9.8-11.6)
[2018-01-02 16:13] LABS: BICARBONATE 28.2 MEQ/L (21.0-32.0); CALCIUM 8.2 MG/DL (8.5-10.1); CREATININE 0.87 MG/DL (0.60-1.30)
[2018-01-02] MEDS ORDERED: IODIXANOL 320 MG/ML 10 ML VIAL (for Rad CT) IVCONTRAST ONE (18:42)
--- NOTE | 2018-01-02 19:01 | RADRPT ---
EXAM DATE/TIME: 01/02/2018 18:35 [facility] COMPARISON: CT ABDOMEN & PELVIS W CONTRAST, October 28, 2017, 17:33. INDICATIONS : Right lower quadrant and groin pain. IV CONTRAST: 50 cc Visipaque (iodixanol) IV ORAL CONTRAST: No oral contrast ingested. RADIATION DOSE: 7.89 CTDIvol (mGy) MEDICAL HISTORY : Cardiovascular disease. Hypertension. SURGICAL HISTORY : None. ENCOUNTER: Initial ACUITY: 1 day PAIN SCALE: 7/10 LOCATION: TECHNIQUE: Volumetric scanning of the abdomen and pelvis was performed. Using automated exposure control and ad justment of the mA and/or kV according to patient size, radiation dose was kept as low as reasonably achievable to obtain optimal diagnostic quality images. DICOM format image data is available electro nically for review and comparison. FINDINGS: LOWER LUNGS: There is mild linear scarring or atelectasis at the lung bases. LIVER: Homogeneous density without lesion. There is no dilation of the biliary tree. There are small calci fied gallstones. SPLEEN: Normal size without lesion. Calcified granulomas are seen. PANCREAS: Within normal limits. KIDNEYS: Normal in size and shape. There is no stone or hydronephrosis. There is a 3.8 cm cyst seen at the po sterior mid left kidney. ADRENAL GLANDS: Within normal limits. VASCULAR: There is no aortic aneurysm. Atherosclerotic calcifications are present. BOWEL/MESENTERY: There appears to be a possible small hiatal hernia. ABDOMINAL WALL: Within normal limits. RETROPERITONEUM: There is no lymphadenopathy. BLADDER: No wall thickening or mass. REPRODUCTIVE: Within normal limits. INGUINAL: There is no lymphadenopathy or hernia. MUSCULOSKELETAL: There is a hematoma seen at the right iliac is muscle extending down into the right upper thigh. At t he iliac fossa region, it measures 6.8 x 8.5 cm. CONCLUSION: 1. Acute hematoma at the right iliac muscle extending along its course towards the lesser trochanter. 2. Left renal cyst. 3. Small calcified gallstones 4. Calcified granulomas in the spleen. 5. Possible mild hiatal hernia. Tom Machado MD on January 02, 2018 at 18:53 Board Certified Radiologist. This report was verified electronically.
[2018-01-02] MEDS ORDERED: PERC5TAB12 PO (19:23)
--- NOTE | 2018-01-02 19:23 | PD ---
Physical Exam Narrative Patient was seen by ED physician and signed out to me. Physical exam: Patient has moderate tenderness on palpation right lower quadrant of the abdomen. No rebound tenderness. No mass. Patient had moderate tenderness on palpation anterior aspect of right hip and lateral aspect the right hip joint. Limited range of motion of the right hip joint secondary to pain. No redness no heat noted. Sensory motor function distally intact. Data Data Last Documented VS Vital Signs Date Time Temp Pulse Resp B/P (MAP) Pulse Ox O2 Delivery O2 Flow Rate FiO2 01/02/18 11:51 98.5 61 18 144/67 (92) 97 Orders Orders Basic Metabolic Panel (Bmp) (01/02/18 15:07) Complete Blood Count With Diff (01/02/18 15:07) Prothrombin Time / Inr (Pt) (01/02/18 15:07) Ct Abd/Pel W Iv Contrast(Rout) (01/02/18 15:07) Iv Access Insert/Monitor (01/02/18 15:07) Ecg Monitoring (01/02/18 15:07) Oximetry (01/02/18 15:07) Sodium Chloride 0.9% Flush (Ns Flush) (01/02/18 15:15) Iodixanol 320 Inj (Rad Ct) (Visipaque 32 (01/02/18 18:42) Oxycodone-Acetamin 5-325 Mg (Percocet (01/02/18 19:30) Ed Discharge Order (01/02/18 19:24) Labs Laboratory Tests Test 01/02/18 15:30 White Blood Count 7.6 TH/MM3 Red Blood Count 2.96 MIL/MM3 Hemoglobin 8.9 GM/DL Hematocrit 26.2 % Mean Corpuscular Volume 88.3 FL Mean Corpuscular Hemoglobin 30.1 PG Mean Corpuscular Hemoglobin Concent 34.0 % Red Cell Distribution Width 13.6 % Platelet Count 275 TH/MM3 Mean Platelet Volume 7.5 FL Neutrophils (%) (Auto) 64.5 % Lymphocytes (%) (Auto) 19.4 % Monocytes (%) (Auto) 12.2 % Eosinophils (%) (Auto) 3.0 % Basophils (%) (Auto) 0.9 % Neutrophils # (Auto) 4.9 TH/MM3 Lymphocytes # (Auto) 1.5 TH/MM3 Monocytes # (Auto) 0.9 TH/MM3 Eosinophils # (Auto) 0.2 TH/MM3 Basophils # (Auto) 0.1 TH/MM3 CBC Comment DIFF FINAL Differential Comment Prothrombin Time 30.2 SEC Prothromb Time International Ratio 3.0 RATIO Blood Urea Nitrogen 14 MG/DL Creatinine 0.87 MG/DL Random Glucose 111 MG/DL Calcium Level 8.2 MG/DL Sodium Level 137 MEQ/L Potassium Level 3.8 MEQ/L Chloride Level 101 MEQ/L Carbon Dioxide Level 28.2 MEQ/L Anion Gap 8 MEQ/L Estimat Glomerular Filtration Rate 87 ML/MIN MDM Supervised Visit with IRA: No Interpretation(s) 1903 p.m. CBC WBC 7.6. Hemoglobin 8.9 hematocrit 26.2. Normal differential. BMP within normal limits. Calcium 8.2. INR 3.0. [address] scan abdomen and pelvis shows acute hematoma right iliac muscle extending along its course toward the lesser trochanter. Differential Diagnosis Differential diagnosis including hemorrhagic etiology, sprain, fracture, tendinitis, bursitis. Narrative Course 67-year-old male with right lower quadrant abdominal pain, right hip pain. Patient's on Coumadin for atrial fibrillation. Patient recently had endoscopy and colonoscopy done. Patient states that the pain started after endoscopy. Percocet 1 tablet p.o. given now. Diagnosis Primary Impression: Abdominal pain Qualified Codes: R10.31 - Right lower quadrant pain Additional Impression: Hematoma Patient Instructions: General Instructions Additional Instruction: Take medication as needed for pain. Follow-up with supervisor slitting and shipping and personal physician. Repeat CBC and PT/INR in 2 days. Return if worse. Advised patient to hold Coumadin for the next 2 days. Patient will contact his supervisor slitting and shipping in a.m. for that approval. Med/Other Pt SpecificInfo: Prescription(s) given Scripts Oxycodone-Acetaminophen (Percocet) 5-325 mg Tab 1 TAB PO Q6H Y for PAIN, #12 TAB 0 Refills Prov: Jose Carlos French MD 01/02/18 Disposition: 01 DISCHARGE HOME Condition: Stable Jose Carlos French MD Jan 02, 2018 19:23
[2018-01-02] MEDS ORDERED: oxyCODONE/ACETAMINOPHEN 5 MG/325 MG TAB PO ONE (19:30)
[2018-01-02] MEDS ORDERED: DILTIAZEM HCL 30 MG TAB PO ONE (20:15)
[2018-01-02 20:24] VITALS: RESP 16
== END 2018-01-02 21:08 | disposition home or self-care (01) ==
LOC: NEPD 11:38 → NEDAMB 21:08
DX: S30.1XXA Contusion of abdominal wall, initial encounter (principal); R10.31 Right lower quadrant pain; M25.551 Pain in right hip; I48.91 Unspecified atrial fibrillation; D64.9 Anemia, unspecified; N28.1 Cyst of kidney, acquired; K80.80 Other cholelithiasis without obstruction; E11.9 Type 2 diabetes mellitus without complications; X58.XXXA Exposure to other specified factors, initial encounter
CPT/HCPCS: 74177; 80048; 85025; 85610; 99284; Q9967